=== PATIENT | male | born 2000 | race Hispanic/Latino ===

== ENCOUNTER 2021-07-03 22:26 | Emergency (ER) | payer MEDICAID ==
[~2021-07-03] VITALS: Ht 157.5 cm; Wt 140.0 kg
[~2021-07-03 22:26] MED LIST: BACTRIM DS1 TAB PO; NO
[2021-07-04 02:39] LABS: HEMATOCRIT 47.1 % (39.0-50.0); HEMOGLOBIN 14.7 g/dl (14.0-18.0); IMMATURE GRANULOCYTES 0.6 % (0.0-5.0); MEAN CORPUSCULAR HGB 25.9 pG CALC (26.0-32.0); MEAN CORPUSCULAR HGB CONC 31.2 g/dL CAL (32.0-36.0); NEUT# 5.81 thou/uL (1.82-7.42); RED BLOOD COUNT 5.67 mill/uL (4.70-6.10); RED CELL DISTRI WIDTH 13.7 % (11.5-15.5)
[2021-07-04 02:41] LABS: MEAN CELL VOLUME 83.1 fL CALC (80.0-100.0)
[2021-07-04 02:50] LABS: ANION GAP 14 (6-22 (CALC)); BUN 12 mg/dL (9-20); BUN/CREATININE RATIO 10 (12-20 (CALC)); CARBON DIOXIDE 27 mmol/l (22-30); CHLORIDE 101 mmol/l (95-108); CREATININE 1.2 mg/dL (0.7-1.3); GFR > 60 ML/MIN (>=60 (CALC)); GFR FOR AFR.AMER. > 60 ML/MIN (>=60 (CALC)); POTASSIUM 4.2 mmol/l (3.5-5.1); SODIUM 138 mmol/l (137-146)
[2021-07-04 04:23] VITALS: BP 118/68
== END 2021-07-04 04:23 | disposition home or self-care (01) ==
LOC: ED 22:26
PROVIDERS: Family Medicine
DX: U07.1 COVID-19 (principal)

== ENCOUNTER 2021-07-11 12:50 | Emergency (ER) | payer MEDICAID ==
[~2021-07-11] VITALS: Ht 157.5 cm; Wt 159.0 kg
[2021-07-11] MEDS ORDERED: VENTOLIN HFA IN (15:48)
[2021-07-11] MEDS ORDERED: ZOFRAN4 MG/TAB PO (15:48)
[2021-07-11] MEDS ORDERED: DECADRON6 MG PO (15:48)
[2021-07-11] MEDS ORDERED: ROBITUSSIN AC10 ML PO (15:48)
[2021-07-11 16:23] VITALS: BP 121/65
== END 2021-07-11 16:30 | disposition home or self-care (01) ==
LOC: ED 12:50
DX: U07.1 COVID-19 (principal)